=== PATIENT | male | born 1935 | race Caucasian/White ===

== ENCOUNTER 2022-09-23 21:33 | Inpatient (IN) | payer MEDICARE, OTHER ==
[~2022-09-23] VITALS: Ht 170.2 cm; Wt 68.0 kg
[2022-09-23] MEDS ORDERED: FAMOTIDINE. 20 MG/2 ML VIAL IV ONE (22:00)
[2022-09-23] MEDS ORDERED: ONDANSETRON 4 MG/2 ML VIAL IV ONE (22:00)
[2022-09-23 22:10] LABS: BASOPHILS % (AUTO) 0.5 % (0.0-2.0); EOSINOPHILS # (AUTO) 0.1 K/uL (0.0-0.7); EOSINOPHILS % (AUTO) 1.5 % (0.0-7.0); HEMATOCRIT 37.1 % (36.7-47.1); HEMOGLOBIN 12.5 g/dL (12.5-16.3); LYMPHOCYTES # (AUTO) 0.7 K/uL (0.8-4.8); LYMPHOCYTES % (AUTO) 8.9 % (20.5-51.5); MEAN CORPUSCULAR HEMOGLOBIN 29.5 uug (23.8-33.4); MEAN CORPUSCULAR HGB CONC 34 g/dL (32.5-36.3); MEAN CORPUSCULAR VOLUME 87.9 fL (73.0-96.2); MONOCYTES # (AUTO) 0.4 K/uL (0.1-1.30); MONOCYTES % (AUTO) 5.4 % (0.0-11.0); NEUTROPHILS # (AUTO) 6.2 K/uL (1.8-8.9); NEUTROPHILS % (AUTO) 83.7 % (38.5-71.5); PLATELET COUNT (AUTO) 198 K/uL (152-348); RED BLOOD CELL COUNT(AUTO) 4.23 MIL/uL (4.06-5.63); RED CELL DISTRIBUTION WIDTH 15.1 % (12.1-16.2); WHITE BLOOD COUNT (AUTO) 7.4 K/uL (3.6-10.2)
[2022-09-23 22:15] LABS: DIFFERENTIAL COMMENT 1
[2022-09-23 22:18] LABS: CALCIUM 9.1 mg/dL (8.5-10.1); CARBON DIOXIDE 28 mmol/L (21-32); CHLORIDE 102 mmol/L (98-107); CREATININE 1.9 mg/dL (0.6-1.3); GLUCOSE 120 mg/dL (74-106); POTASSIUM 3.9 mmol/L (3.5-5.1); SODIUM SERUM 138 mmol/L (136-145); UREA NITROGEN, BLOOD 40 mg/dL (7-18)
[2022-09-23] MEDS ORDERED: GABA-532 PO (22:28)
[2022-09-23] MEDS ORDERED: SODI10PO PO (22:28)
[2022-09-23] MEDS ORDERED: MEMA10TA PO (22:28)
[2022-09-23] MEDS ORDERED: CARV3.122 PO (22:28)
[2022-09-23] MEDS ORDERED: MULT-1045 PO (22:28)
[2022-09-23] MEDS ORDERED: CALC-1257 PO (22:28)
[2022-09-23] MEDS ORDERED: RIVA1PAT TD (22:28)
[2022-09-23] MEDS ORDERED: ASPI81TA31 PO (22:28)
[2022-09-23] MEDS ORDERED: OMEP20CA15 PO (22:28)
[2022-09-23] MEDS ORDERED: ESCI10TA PO (22:28)
[2022-09-23] MEDS ORDERED: SIMV-49 PO (22:28)
[2022-09-23 22:31] LABS: ALANINE AMINOTRANSFERASE 17 U/L (16-63); ALBUMIN 3.2 g/dL (3.4-5.0); ALKALINE PHOSPHATASE 56 U/L (50-136); ASPARTATE AMINOTRANSFERASE 12 U/L (15-37); BILIRUBIN,DIRECT 0.1 mg/dL (0.0-0.2); BILIRUBIN,TOTAL 0.4 mg/dL (0.2-1.0); NT-PRO BNP 712 pg/mL (0-125); TOTAL PROTEIN, SERUM 7.5 g/dL (6.4-8.2)
[2022-09-23] MEDS ORDERED: ONDANSETRON 4 MG/2 ML VIAL IV PRN (23:00)
[2022-09-23] MEDS ORDERED: MORPHINE SULFATE 2 MG/1 ML DISP.SYRIN IV PRN (23:00)
[2022-09-23] MEDS ORDERED: NITROGLYCERIN 0.4 MG/TAB BOTTLE SL PRN (23:00)
[2022-09-23] MEDS ORDERED: IV NS 1000 ML 1,000 ML IV PRN (23:00)
[2022-09-23] MEDS ORDERED: REMEDY ESSENTIAL ZINC PASTE 113 GM TP PRN (23:00)
[2022-09-23] MEDS ORDERED: ACETAMINOPHEN 325 MG TABLET PO PRN (23:00)
[2022-09-23] MEDS ORDERED: LORAZEPAM 0.5 MG TABLET PO ONE (23:00)
[2022-09-24 01:00] VITALS: BP 117/48; TEMP 97.9
[2022-09-24 04:30] VITALS: BP 118/48; TEMP 98
[2022-09-24 07:00] LABS: BASOPHILS % (AUTO) 0.5 % (0.0-2.0); EOSINOPHILS # (AUTO) 0.3 K/uL (0.0-0.7); EOSINOPHILS % (AUTO) 4.3 % (0.0-7.0); HEMOGLOBIN 11.4 g/dL (12.5-16.3); LYMPHOCYTES # (AUTO) 2.5 K/uL (0.8-4.8); MEAN CORPUSCULAR HEMOGLOBIN 29.5 uug (23.8-33.4); MEAN CORPUSCULAR HGB CONC 34 g/dL (32.5-36.3); MEAN CORPUSCULAR VOLUME 87.9 fL (73.0-96.2); MONOCYTES # (AUTO) 0.8 K/uL (0.1-1.30); MONOCYTES % (AUTO) 12.3 % (0.0-11.0); NEUTROPHILS % (AUTO) 44.9 % (38.5-71.5); PLATELET COUNT (AUTO) 171 K/uL (152-348); RED BLOOD CELL COUNT(AUTO) 3.87 MIL/uL (4.06-5.63); RED CELL DISTRIBUTION WIDTH 14.6 % (12.1-16.2); WHITE BLOOD COUNT (AUTO) 6.6 K/uL (3.6-10.2)
[2022-09-24] MEDS ORDERED: PANTOPRAZOLE SODIUM 40 MG TABLET.DR PO SCH (07:00)
[2022-09-24 07:19] LABS: CALCIUM 8.4 mg/dL (8.5-10.1); CARBON DIOXIDE 25 mmol/L (21-32); CHLORIDE 105 mmol/L (98-107); CHOLESTEROL 95 mg/dL (<200); CREATININE 1.7 mg/dL (0.6-1.3); DIFFERENTIAL COMMENT 1; GLUCOSE 98 mg/dL (74-106); HDL CHOLESTEROL 41 mg/dL (40-60); MAGNESIUM 2.1 mg/dL (1.8-2.4); POTASSIUM 4.2 mmol/L (3.5-5.1); SODIUM SERUM 138 mmol/L (136-145); TRIGLYCERIDES 99 MG/DL (30-150); UREA NITROGEN, BLOOD 34 mg/dL (7-18)
[2022-09-24 07:53] LABS: THYROID STIMULATING HORMONE 1.851 mIU/mL (0.358-3.740)
[2022-09-24 08:04] VITALS: BP 109/75; TEMP 97.7
[2022-09-24] MEDS ORDERED: CALCIUM CARB/VITAMIN D 600-400 MG TABLET PO SCH (09:00)
[2022-09-24] MEDS ORDERED: ASPIRIN 81 MG TAB.CHEW PO SCH (09:00)
[2022-09-24] MEDS ORDERED: RIVASTIGMINE 4.6 MG PATCH TD SCH (09:00)
[2022-09-24] MEDS ORDERED: MEMANTINE HCL 10 MG TABLET PO SCH (09:00)
[2022-09-24] MEDS ORDERED: HEPARIN SODIUM,PORCINE 5,000 UNITS/ML VIAL SQ SCH (09:00)
[2022-09-24] MEDS ORDERED: MULTIVITAMINS,THERAPEUTIC TABLET PO SCH (09:00)
[2022-09-24] MEDS ORDERED: RIVA4.5C10 PO (10:00)
[2022-09-24 11:48] VITALS: BP 123/55; TEMP 98; O2SAT 98
[2022-09-24] MEDS ORDERED: NITR0.4T48 SL (13:03)
[2022-09-24] MEDS ORDERED: SIMVASTATIN 40 MG TABLET PO SCH (21:00)
[2022-09-24] MEDS ORDERED: ESCITALOPRAM OXALATE 10 MG TABLET PO SCH (21:00)
== END 2022-09-24 13:55 | disposition home or self-care (01) | DRG 303 ==
LOC: ER 21:33 → TELE3 22:57
PROVIDERS: ADMIT Student in an Organized Health Care Education/Training Program; ATTEND Student in an Organized Health Care Education/Training Program
DX: I25.110 Atherosclerotic heart disease of native coronary artery with unstable angina pectoris (principal); N18.4 Chronic kidney disease, stage 4 (severe); Z95.1 Presence of aortocoronary bypass graft; E78.5 Hyperlipidemia, unspecified; I12.9 Hypertensive chronic kidney disease with stage 1 through stage 4 chronic kidney disease, or unspecified chronic kidney disease; F03.90 Unspecified dementia, unspecified severity, without behavioral disturbance, psychotic disturbance, mood disturbance, and anxiety; Z95.5 Presence of coronary angioplasty implant and graft; Z79.82 Long term (current) use of aspirin
CPT/HCPCS: 36415; 71045; 83735; 84100; 84443; 84484; 85025; 85730; 93005; A4663; G0378; J1644; J2405; J3490; J7040

== ENCOUNTER 2022-11-29 14:55 | Inpatient (IN) | payer MEDICARE, OTHER ==
[~2022-11-29] VITALS: Ht 167.6 cm; Wt 66.3 kg
[~2022-11-29 14:55] MED LIST: ASPI81TA31 PO; CALC-1257 PO; CARV3.122 PO; ESCI10TA PO; GABA-532 PO; MEMA10TA PO; MULT-1045 PO; NITR0.4T48 SL; OMEP20CA15 PO; RIVA4.5C10 PO; SIMV-49 PO; SODI10PO PO
[2022-11-29] MEDS ORDERED: IV NORMAL SALINE 1000 ML BAG IV ONE (15:15)
[2022-11-29] MEDS ORDERED: BREZTRI INH (15:24)
[2022-11-29] MEDS ORDERED: [UNRECOGNIZED DRUG - OTHER] INH (15:24)
[2022-11-29 15:26] LABS: BASOPHILS # (AUTO) 0.4 K/UL (0.0-0.2); BASOPHILS % (AUTO) 2.1 % (0.0-2.0); EOSINOPHILS % (AUTO) 0.2 % (0.0-7.0); HEMATOCRIT 40.1 % (36.7-47.1); LYMPHOCYTES # (AUTO) 2.1 K/uL (0.8-4.8); LYMPHOCYTES % (AUTO) 11.1 % (20.5-51.5); MEAN CORPUSCULAR HEMOGLOBIN 27.9 uug (23.8-33.4); MEAN CORPUSCULAR HGB CONC 33 g/dL (32.5-36.3); MEAN CORPUSCULAR VOLUME 85.7 fL (73.0-96.2); MONOCYTES # (AUTO) 1.6 K/uL (0.1-1.30); MONOCYTES % (AUTO) 8.4 % (0.0-11.0); NEUTROPHILS # (AUTO) 14.7 K/uL (1.8-8.9); NEUTROPHILS % (AUTO) 78.2 % (38.5-71.5); PLATELET COUNT (AUTO) 283 K/uL (152-348); RED BLOOD CELL COUNT(AUTO) 4.67 MIL/uL (4.06-5.63); RED CELL DISTRIBUTION WIDTH 15.3 % (12.1-16.2); WHITE BLOOD COUNT (AUTO) 18.8 K/uL (3.6-10.2)
[2022-11-29 15:30] LABS: DIFFERENTIAL COMMENT 1
[2022-11-29 15:38] LABS: CALCIUM 8.9 mg/dL (8.5-10.1); CARBON DIOXIDE 24 mmol/L (21-32); CHLORIDE 96 mmol/L (98-107); CREATININE 1.6 mg/dL (0.6-1.3); GLUCOSE 100 mg/dL (74-106); POTASSIUM 4.2 mmol/L (3.5-5.1); SODIUM SERUM 131 mmol/L (136-145); UREA NITROGEN, BLOOD 31 mg/dL (7-18)
[2022-11-29 15:46] LABS: ALANINE AMINOTRANSFERASE 39 U/L (16-63); ALBUMIN 2.4 g/dL (3.4-5.0); ALKALINE PHOSPHATASE 93 U/L (50-136); ASPARTATE AMINOTRANSFERASE 32 U/L (15-37); BILIRUBIN,DIRECT 0.7 mg/dL (0.0-0.2); BILIRUBIN,TOTAL 1.8 mg/dL (0.2-1.0); TOTAL PROTEIN, SERUM 7.6 g/dL (6.4-8.2)
[2022-11-29 17:06] LABS: *BILIRUBIN,URIN NEGATIVE (NEGATIVE); *BLOOD, URINE 2+ (NEGATIVE); *CLARITY,URINE CLEAR (CLEAR); *COLOR,URINE YELLOW (YELLOW); *KETONES,URINE 2+ (NEGATIVE); *PROTEIN,URINE 2+ (NEGATIVE); LEUKOCYTE ESTERASE ,URINE NEGATIVE (NEGATIVE); NITRITE, URINE NEGATIVE (NEGATIVE); UGLUCOSE NEGATIVE (NEGATIVE)
[2022-11-29 17:14] LABS: BACTERIA,URINE FEW /HPF (NONE SEEN); RBC,URINE 50-80 /HPF (0-3); SQUAMOUS EPITHELIAL CELL,UR FEW /HPF (NONE SEEN); WBC,URINE NONE SEEN /HPF (0-3)
[2022-11-29] MEDS ORDERED: PIPERACILLIN SODIUM/TAZOBACTAM 4.5 G in IV DEXTROSE 5% 50 ML IV SCH (18:30)
[2022-11-29] MEDS ORDERED: VANCOMYCIN IV 1,000 MG in IV DEXTROSE 5% 250 ML IV ONE (18:30)
[2022-11-29] MEDS ORDERED: VANCOMYCIN IV 200 ML ONE (18:39)
[2022-11-29] MEDS ORDERED: PIPERACILLIN/TAZO 4.5 GM VIAL IV ONE (18:39)
[2022-11-29] MEDS ORDERED: REMEDY ESSENTIAL ZINC PASTE 113 GM TP PRN (19:45)
[2022-11-29] MEDS ORDERED: ACETAMINOPHEN 325 MG TABLET PO PRN (19:45)
[2022-11-29] MEDS ORDERED: ONDANSETRON 4 MG/2 ML VIAL IV PRN (19:45)
[2022-11-29] MEDS ORDERED: FLEET ENEMA 133 ML BOTTLE RC ONE (19:45)
[2022-11-29] MEDS: AZITHROMYCIN IV 500 MG in IV DEXTROSE 5% 250 ML IV SCH ×2 (20:00→22:00)
[2022-11-29] MEDS ORDERED: ALBUTEROL SULFATE 2.5 MG/3 ML NEBU NEB PRN (20:00)
[2022-11-29] MEDS ORDERED: IPRATROPIUM BROMIDE 0.5 MG/2.5 ML NEBU NEB PRN (20:00)
[2022-11-29] MEDS: CEFEPIME HCL 1 G in IV DEXTROSE 5% 50 ML IV SCH ×2 (21:00→22:00)
[2022-11-29] MEDS: HEPARIN SODIUM,PORCINE 5,000 UNITS/ML VIAL SQ SCH (21:00)
[2022-11-29] MEDS ORDERED: SIMVASTATIN 40 MG TABLET PO SCH (21:00)
[2022-11-29 21:30] VITALS: BP 133/62; TEMP 98.9; O2SAT 94
[2022-11-29] MEDS: IV NS 1000 ML 1,000 ML IV PRN (22:00)
[2022-11-29] MEDS ORDERED: CEFEPIME HCL 1 G VIAL ONE (22:39)
[2022-11-29] MEDS ORDERED: AZITHROMYCIN 500 MG VIAL IV ONE (22:40)
[2022-11-30 00:14] VITALS: BP 140/63; TEMP 99.8; O2SAT 94
[2022-11-30] MEDS ORDERED: KETOROLAC TROMETHAMINE 15 MG INJ IVP PRN (01:45)
[2022-11-30] MEDS ORDERED: MORPHINE SULFATE 2 MG/1 ML DISP.SYRIN IV PRN (01:45)
[2022-11-30 04:48] VITALS: BP 114/51; TEMP 98.5; O2SAT 94
[2022-11-30] MEDS: PANTOPRAZOLE SODIUM 40 MG TABLET.DR PO SCH (06:30)
[2022-11-30] MEDS: CEFEPIME HCL 1 G in IV DEXTROSE 5% 50 ML IV SCH (07:03)
[2022-11-30 07:29] LABS: BASOPHILS % (AUTO) 0.2 % (0.0-2.0); HEMATOCRIT 35.5 % (36.7-47.1); HEMOGLOBIN 11.5 g/dL (12.5-16.3); LYMPHOCYTES % (AUTO) 5.2 % (20.5-51.5); MEAN CORPUSCULAR HEMOGLOBIN 28.1 uug (23.8-33.4); MEAN CORPUSCULAR HGB CONC 32 g/dL (32.5-36.3); MEAN CORPUSCULAR VOLUME 86.8 fL (73.0-96.2); MONOCYTES # (AUTO) 1.7 K/uL (0.1-1.30); NEUTROPHILS % (AUTO) 85.6 % (38.5-71.5); PLATELET COUNT (AUTO) 256 K/uL (152-348); RED BLOOD CELL COUNT(AUTO) 4.09 MIL/uL (4.06-5.63); RED CELL DISTRIBUTION WIDTH 15.1 % (12.1-16.2); WHITE BLOOD COUNT (AUTO) 18.8 K/uL (3.6-10.2)
[2022-11-30 07:38] LABS: DIFFERENTIAL COMMENT 1
[2022-11-30 07:46] LABS: CALCIUM 8.4 mg/dL (8.5-10.1); CARBON DIOXIDE 22 mmol/L (21-32); CHLORIDE 102 mmol/L (98-107); CHOLESTEROL 94 mg/dL (<200); CREATININE 1.6 mg/dL (0.6-1.3); GLUCOSE 134 mg/dL (74-106); HDL CHOLESTEROL 38 mg/dL (40-60); MAGNESIUM 2.4 mg/dL (1.8-2.4); PHOSPHOROUS 3.5 mg/dL (2.5-4.9); POTASSIUM 4.4 mmol/L (3.5-5.1); SODIUM SERUM 129 mmol/L (136-145); TRIGLYCERIDES 60 MG/DL (30-150); UREA NITROGEN, BLOOD 29 mg/dL (7-18)
[2022-11-30 07:54] LABS: THYROID STIMULATING HORMONE 3.341 mIU/mL (0.358-3.740)
[2022-11-30 08:00] VITALS: BP 109/46; TEMP 99.1; O2SAT 100
[2022-11-30] MEDS: MEMANTINE HCL 10 MG TABLET PO SCH (09:00)
[2022-11-30] MEDS ORDERED: MEMANTINE HCL 10 MG TABLET PO SCH (09:00)
[2022-11-30] MEDS: HEPARIN SODIUM,PORCINE 5,000 UNITS/ML VIAL SQ SCH ×2 (09:58→20:59)
[2022-11-30] MEDS: ASPIRIN 81 MG TAB.CHEW PO SCH (09:59)
[2022-11-30] MEDS: MULTIVITAMINS,THERAPEUTIC TABLET PO SCH (10:00)
[2022-11-30] MEDS: CALCIUM CARB/VITAMIN D 600-400 MG TABLET PO SCH (10:00)
[2022-11-30] MEDS: MIRALAX 17 GM POWD.PACK PO SCH (10:01)
[2022-11-30] MEDS: RIVASTIGMINE TARTRATE 1.5 MG CAPSULE PO SCH (10:02)
[2022-11-30] MEDS ORDERED: FLEET ENEMA 133 ML BOTTLE RC ONE (11:15)
[2022-11-30] MEDS: CEFEPIME HCL 2 G in IV DEXTROSE 5% 100 ML IV SCH (13:49)
[2022-11-30 15:41] VITALS: BP 112/54; TEMP 97.4; O2SAT 94
[2022-11-30 20:00] VITALS: BP 138/70; TEMP 98.2
[2022-11-30] MEDS: AZITHROMYCIN IV 500 MG in IV DEXTROSE 5% 250 ML IV SCH (20:04)
[2022-11-30] MEDS: SIMVASTATIN 40 MG TABLET PO SCH (21:00)
[2022-11-30] MEDS: ESCITALOPRAM OXALATE 10 MG TABLET PO SCH (21:00)
[2022-11-30 23:50] VITALS: BP 148/62; TEMP 98
[2022-12-01] MEDS: CEFEPIME HCL 2 G in IV DEXTROSE 5% 100 ML IV SCH ×2 (01:33→13:16)
[2022-12-01] MEDS: PANTOPRAZOLE SODIUM 40 MG TABLET.DR PO SCH (06:12)
[2022-12-01 07:19] LABS: BASOPHILS # (AUTO) 0.1 K/UL (0.0-0.2); BASOPHILS % (AUTO) 0.4 % (0.0-2.0); EOSINOPHILS # (AUTO) 0.1 K/uL (0.0-0.7); EOSINOPHILS % (AUTO) 0.9 % (0.0-7.0); HEMATOCRIT 31.3 % (36.7-47.1); HEMOGLOBIN 10.3 g/dL (12.5-16.3); LYMPHOCYTES # (AUTO) 0.8 K/uL (0.8-4.8); LYMPHOCYTES % (AUTO) 5.7 % (20.5-51.5); MEAN CORPUSCULAR HEMOGLOBIN 28.4 uug (23.8-33.4); MEAN CORPUSCULAR HGB CONC 33 g/dL (32.5-36.3); MEAN CORPUSCULAR VOLUME 86.2 fL (73.0-96.2); MONOCYTES # (AUTO) 0.9 K/uL (0.1-1.30); MONOCYTES % (AUTO) 6.8 % (0.0-11.0); NEUTROPHILS # (AUTO) 11.6 K/uL (1.8-8.9); NEUTROPHILS % (AUTO) 86.2 % (38.5-71.5); PLATELET COUNT (AUTO) 221 K/uL (152-348); RED BLOOD CELL COUNT(AUTO) 3.64 MIL/uL (4.06-5.63); RED CELL DISTRIBUTION WIDTH 15.1 % (12.1-16.2); WHITE BLOOD COUNT (AUTO) 13.5 K/uL (3.6-10.2)
[2022-12-01] MEDS: IV NS 1000 ML 1,000 ML IV PRN (07:19)
[2022-12-01 07:40] LABS: CALCIUM 7.7 mg/dL (8.5-10.1); CARBON DIOXIDE 20 mmol/L (21-32); CHLORIDE 101 mmol/L (98-107); CREATININE 1.4 mg/dL (0.6-1.3); GLUCOSE 121 mg/dL (74-106); LIPASE 66 U/L (73-393); PHOSPHOROUS 2.5 mg/dL (2.5-4.9); POTASSIUM 3.8 mmol/L (3.5-5.1); SODIUM SERUM 131 mmol/L (136-145); UREA NITROGEN, BLOOD 26 mg/dL (7-18)
[2022-12-01 08:06] LABS: DIFFERENTIAL COMMENT 1
[2022-12-01] MEDS: MIRALAX 17 GM POWD.PACK PO SCH (08:42)
[2022-12-01] MEDS: CALCIUM CARB/VITAMIN D 600-400 MG TABLET PO SCH (08:42)
[2022-12-01] MEDS: RIVASTIGMINE TARTRATE 1.5 MG CAPSULE PO SCH (08:42)
[2022-12-01] MEDS: ASPIRIN 81 MG TAB.CHEW PO SCH (08:42)
[2022-12-01] MEDS: MULTIVITAMINS,THERAPEUTIC TABLET PO SCH (08:43)
[2022-12-01] MEDS: MEMANTINE HCL 10 MG TABLET PO SCH (08:43)
[2022-12-01] MEDS: HEPARIN SODIUM,PORCINE 5,000 UNITS/ML VIAL SQ SCH ×2 (08:45→20:26)
[2022-12-01 11:32] VITALS: BP 113/43; TEMP 97.3; O2SAT 95
[2022-12-01 15:51] VITALS: BP 116/50; TEMP 97.6; O2SAT 95
[2022-12-01] MEDS: ESCITALOPRAM OXALATE 10 MG TABLET PO SCH (20:22)
[2022-12-01] MEDS: SIMVASTATIN 40 MG TABLET PO SCH (20:22)
[2022-12-01] MEDS: AZITHROMYCIN IV 500 MG in IV DEXTROSE 5% 250 ML IV SCH (20:33)
[2022-12-01 21:52] VITALS: BP 126/57; TEMP 99.1; O2SAT 99
[2022-12-02 01:18] VITALS: BP 126/62; TEMP 98; O2SAT 99
[2022-12-02] MEDS: CEFEPIME HCL 2 G in IV DEXTROSE 5% 100 ML IV SCH ×2 (02:38→14:07)
[2022-12-02 05:55] VITALS: BP 115/64; TEMP 98.6; O2SAT 100
[2022-12-02] MEDS: PANTOPRAZOLE SODIUM 40 MG TABLET.DR PO SCH (06:45)
[2022-12-02 07:14] LABS: BASOPHILS # (AUTO) 0.1 K/UL (0.0-0.2); BASOPHILS % (AUTO) 0.9 % (0.0-2.0); EOSINOPHILS # (AUTO) 0.4 K/uL (0.0-0.7); EOSINOPHILS % (AUTO) 3.5 % (0.0-7.0); HEMATOCRIT 33.2 % (36.7-47.1); LYMPHOCYTES # (AUTO) 1.1 K/uL (0.8-4.8); LYMPHOCYTES % (AUTO) 10.2 % (20.5-51.5); MEAN CORPUSCULAR HEMOGLOBIN 28.5 uug (23.8-33.4); MEAN CORPUSCULAR HGB CONC 33 g/dL (32.5-36.3); MEAN CORPUSCULAR VOLUME 86.2 fL (73.0-96.2); MONOCYTES # (AUTO) 0.8 K/uL (0.1-1.30); MONOCYTES % (AUTO) 7.5 % (0.0-11.0); NEUTROPHILS # (AUTO) 8.1 K/uL (1.8-8.9); NEUTROPHILS % (AUTO) 77.9 % (38.5-71.5); PLATELET COUNT (AUTO) 230 K/uL (152-348); RED BLOOD CELL COUNT(AUTO) 3.85 MIL/uL (4.06-5.63); RED CELL DISTRIBUTION WIDTH 15.2 % (12.1-16.2); WHITE BLOOD COUNT (AUTO) 10.3 K/uL (3.6-10.2)
[2022-12-02 07:24] LABS: DIFFERENTIAL COMMENT 1
[2022-12-02 07:27] LABS: CALCIUM 7.7 mg/dL (8.5-10.1); CARBON DIOXIDE 23 mmol/L (21-32); CHLORIDE 101 mmol/L (98-107); CREATININE 1.5 mg/dL (0.6-1.3); GLUCOSE 85 mg/dL (74-106); SODIUM SERUM 132 mmol/L (136-145); UREA NITROGEN, BLOOD 25 mg/dL (7-18)
[2022-12-02 08:04] LABS: MAGNESIUM 2.1 mg/dL (1.8-2.4); PHOSPHOROUS 2.1 mg/dL (2.5-4.9)
[2022-12-02 08:25] VITALS: BP 128/70; TEMP 97.9; O2SAT 94
[2022-12-02] MEDS: HEPARIN SODIUM,PORCINE 5,000 UNITS/ML VIAL SQ SCH ×2 (08:56→20:19)
[2022-12-02] MEDS: MIRALAX 17 GM POWD.PACK PO SCH (09:43)
[2022-12-02] MEDS: RIVASTIGMINE TARTRATE 1.5 MG CAPSULE PO SCH (09:43)
[2022-12-02] MEDS: MULTIVITAMINS,THERAPEUTIC TABLET PO SCH (09:44)
[2022-12-02] MEDS: CALCIUM CARB/VITAMIN D 600-400 MG TABLET PO SCH (09:44)
[2022-12-02] MEDS: ASPIRIN 81 MG TAB.CHEW PO SCH (09:44)
[2022-12-02] MEDS: MEMANTINE HCL 10 MG TABLET PO SCH (09:44)
[2022-12-02 11:33] VITALS: BP 117/64; TEMP 97.9; O2SAT 94
[2022-12-02] MEDS ORDERED: ALBUTEROL SULFATE 2.5 MG/ 0.5 ML NEBU NEB PRN (12:45)
[2022-12-02] MEDS ORDERED: IPRATROPIUM BROMIDE 0.5 MG/2.5 ML NEBU NEB PRN (12:45)
[2022-12-02] MEDS ORDERED: NEUTRA PHOS PACKET PO ONE (15:45)
[2022-12-02 16:00] VITALS: BP 105/49; TEMP 97.4; O2SAT 95
[2022-12-02] MEDS: AZITHROMYCIN IV 500 MG in IV DEXTROSE 5% 250 ML IV SCH (20:12)
[2022-12-02] MEDS: SIMVASTATIN 40 MG TABLET PO SCH (20:13)
[2022-12-02] MEDS: ESCITALOPRAM OXALATE 10 MG TABLET PO SCH (20:13)
[2022-12-02 20:20] VITALS: BP 127/65; TEMP 98.4; O2SAT 95; O2SAT 96
[2022-12-03] MEDS: CEFEPIME HCL 2 G in IV DEXTROSE 5% 100 ML IV SCH ×2 (01:30→13:53)
[2022-12-03 04:20] VITALS: BP 147/63; TEMP 97.4; O2SAT 95
[2022-12-03] MEDS: PANTOPRAZOLE SODIUM 40 MG TABLET.DR PO SCH (06:13)
[2022-12-03 06:50] LABS: BASOPHILS # (AUTO) 0.1 K/UL (0.0-0.2); BASOPHILS % (AUTO) 0.8 % (0.0-2.0); EOSINOPHILS # (AUTO) 0.4 K/uL (0.0-0.7); EOSINOPHILS % (AUTO) 4.6 % (0.0-7.0); HEMATOCRIT 35.3 % (36.7-47.1); HEMOGLOBIN 11.8 g/dL (12.5-16.3); LYMPHOCYTES # (AUTO) 0.9 K/uL (0.8-4.8); LYMPHOCYTES % (AUTO) 10.6 % (20.5-51.5); MEAN CORPUSCULAR HEMOGLOBIN 28.5 uug (23.8-33.4); MEAN CORPUSCULAR HGB CONC 33 g/dL (32.5-36.3); MEAN CORPUSCULAR VOLUME 85.3 fL (73.0-96.2); MONOCYTES # (AUTO) 0.5 K/uL (0.1-1.30); MONOCYTES % (AUTO) 5.9 % (0.0-11.0); NEUTROPHILS # (AUTO) 6.8 K/uL (1.8-8.9); NEUTROPHILS % (AUTO) 78.1 % (38.5-71.5); PLATELET COUNT (AUTO) 266 K/uL (152-348); RED BLOOD CELL COUNT(AUTO) 4.14 MIL/uL (4.06-5.63); RED CELL DISTRIBUTION WIDTH 15.2 % (12.1-16.2); WHITE BLOOD COUNT (AUTO) 8.7 K/uL (3.6-10.2)
[2022-12-03 07:07] LABS: DIFFERENTIAL COMMENT 1
[2022-12-03 07:08] LABS: CALCIUM 8.2 mg/dL (8.5-10.1); CARBON DIOXIDE 22 mmol/L (21-32); CHLORIDE 99 mmol/L (98-107); CREATININE 1.6 mg/dL (0.6-1.3); GLUCOSE 129 mg/dL (74-106); MAGNESIUM 2.1 mg/dL (1.8-2.4); PHOSPHOROUS 2.2 mg/dL (2.5-4.9); POTASSIUM 3.9 mmol/L (3.5-5.1); SODIUM SERUM 130 mmol/L (136-145); UREA NITROGEN, BLOOD 26 mg/dL (7-18)
[2022-12-03 08:15] VITALS: BP 128/70; TEMP 97.9; O2SAT 95
[2022-12-03] MEDS: MIRALAX 17 GM POWD.PACK PO SCH ×2 (09:00→09:54)
[2022-12-03] MEDS: HEPARIN SODIUM,PORCINE 5,000 UNITS/ML VIAL SQ SCH ×2 (09:55→20:04)
[2022-12-03] MEDS: MEMANTINE HCL 10 MG TABLET PO SCH (09:58)
[2022-12-03] MEDS: RIVASTIGMINE TARTRATE 1.5 MG CAPSULE PO SCH (09:58)
[2022-12-03] MEDS: ASPIRIN 81 MG TAB.CHEW PO SCH (09:58)
[2022-12-03] MEDS: MULTIVITAMINS,THERAPEUTIC TABLET PO SCH (09:58)
[2022-12-03] MEDS: CALCIUM CARB/VITAMIN D 600-400 MG TABLET PO SCH (09:58)
[2022-12-03 11:35] VITALS: BP 135/71; TEMP 98.2; O2SAT 95
[2022-12-03] MEDS ORDERED: NEUTRA PHOS PACKET PO ONE (15:30)
[2022-12-03 16:00] VITALS: BP 141/64; TEMP 97.4; O2SAT 96
[2022-12-03] MEDS: SIMVASTATIN 40 MG TABLET PO SCH (20:03)
[2022-12-03] MEDS: ESCITALOPRAM OXALATE 10 MG TABLET PO SCH (20:04)
[2022-12-03 20:55] LABS: *SODIUM RNDM,URINE 79 mmol/L (40-220)
[2022-12-03] MEDS ORDERED: AZITHROMYCIN 250 MG TABLET PO SCH (21:00)
[2022-12-03 22:12] VITALS: BP 118/77; TEMP 98; O2SAT 99
[2022-12-04] MEDS: CEFEPIME HCL 2 G in IV DEXTROSE 5% 100 ML IV SCH ×2 (01:39→13:38)
[2022-12-04 05:07] VITALS: BP 125/55; TEMP 98.2; O2SAT 99
[2022-12-04] MEDS: PANTOPRAZOLE SODIUM 40 MG TABLET.DR PO SCH (06:07)
[2022-12-04 07:34] LABS: BASOPHILS % (AUTO) 0.6 % (0.0-2.0); EOSINOPHILS # (AUTO) 0.5 K/uL (0.0-0.7); HEMATOCRIT 37.8 % (36.7-47.1); HEMOGLOBIN 12.3 g/dL (12.5-16.3); LYMPHOCYTES # (AUTO) 1.3 K/uL (0.8-4.8); LYMPHOCYTES % (AUTO) 16.2 % (20.5-51.5); MEAN CORPUSCULAR HEMOGLOBIN 28.7 uug (23.8-33.4); MEAN CORPUSCULAR HGB CONC 33 g/dL (32.5-36.3); MEAN CORPUSCULAR VOLUME 87.8 fL (73.0-96.2); MONOCYTES # (AUTO) 0.7 K/uL (0.1-1.30); MONOCYTES % (AUTO) 8.4 % (0.0-11.0); NEUTROPHILS # (AUTO) 5.5 K/uL (1.8-8.9); NEUTROPHILS % (AUTO) 68.8 % (38.5-71.5); PLATELET COUNT (AUTO) 290 K/uL (152-348); RED CELL DISTRIBUTION WIDTH 15.3 % (12.1-16.2)
[2022-12-04 07:42] LABS: DIFFERENTIAL COMMENT 1
[2022-12-04 07:50] LABS: CARBON DIOXIDE 21 mmol/L (21-32); CHLORIDE 101 mmol/L (98-107); CREATININE 1.5 mg/dL (0.6-1.3); GLUCOSE 105 mg/dL (74-106); MAGNESIUM 2.4 mg/dL (1.8-2.4); POTASSIUM 4.1 mmol/L (3.5-5.1); SODIUM SERUM 132 mmol/L (136-145); UREA NITROGEN, BLOOD 25 mg/dL (7-18)
[2022-12-04 08:00] VITALS: BP 125/70; TEMP 98.4; O2SAT 95
[2022-12-04] MEDS: MEMANTINE HCL 10 MG TABLET PO SCH (09:24)
[2022-12-04] MEDS: ASPIRIN 81 MG TAB.CHEW PO SCH (09:24)
[2022-12-04] MEDS: CALCIUM CARB/VITAMIN D 600-400 MG TABLET PO SCH (09:24)
[2022-12-04] MEDS: MULTIVITAMINS,THERAPEUTIC TABLET PO SCH (09:25)
[2022-12-04] MEDS: RIVASTIGMINE TARTRATE 1.5 MG CAPSULE PO SCH (09:25)
[2022-12-04] MEDS: HEPARIN SODIUM,PORCINE 5,000 UNITS/ML VIAL SQ SCH ×2 (09:27→20:50)
[2022-12-04] MEDS: MIRALAX 17 GM POWD.PACK PO SCH (09:27)
[2022-12-04] MEDS ORDERED: POLYVINYL ALCOHOL OPHT DROPS 15 ML BOTTLE EACHEYE PRN (11:30)
[2022-12-04 15:14] VITALS: BP 132/64; TEMP 98.2; O2SAT 92
[2022-12-04] MEDS: ESCITALOPRAM OXALATE 10 MG TABLET PO SCH (20:49)
[2022-12-04] MEDS: SIMVASTATIN 40 MG TABLET PO SCH (20:49)
[2022-12-05] MEDS ORDERED: ONDA4VIA52 IM (07:08)
[2022-12-05] MEDS ORDERED: ASPI81TA31 PO (07:08)
[2022-12-05] MEDS ORDERED: IPRA0.2S6 NEB (07:08)
[2022-12-05] MEDS ORDERED: ALBU2.5V38 NEB (07:08)
[2022-12-05] MEDS ORDERED: MORP2VIA IJ (07:08)
[2022-12-05] MEDS ORDERED: CEFE2FRO IV (07:08)
[2022-12-05] MEDS ORDERED: ALBU2.5V13 NEB (07:08)
[2022-12-05] MEDS ORDERED: POLY15DR27 EACHEYE (07:08)
[2022-12-05] MEDS ORDERED: PANT40TA49 PO (07:15)
[2022-12-05] MEDS ORDERED: HEPA500034 SQ (07:15)
[2022-12-05] MEDS ORDERED: POLY17PO4 PO (07:20)
[2022-12-05 07:48] VITALS: BP 100/40; TEMP 98.4; O2SAT 96
== END 2022-12-04 21:08 | DRG 871 ==
LOC: ER 14:57 → MEDSURG3 18:32 → UNDOADMIN 18:32 → TELE3 20:48 → MEDSURG3 12-02 11:00
PROVIDERS: ADMIT Nurse Practitioner Family; ATTEND Nurse Practitioner Family
PROC: 05HC33Z Insertion of Infusion Device into Left Basilic Vein, Percutaneous Approach (ICD-10-PCS; principal; 2022-11-30)
DX: A41.9 Sepsis, unspecified organism (principal); G93.41 Metabolic encephalopathy; J15.9 Unspecified bacterial pneumonia; E87.1 Hypo-osmolality and hyponatremia; J44.0 Chronic obstructive pulmonary disease with (acute) lower respiratory infection; R17 Unspecified jaundice; N18.4 Chronic kidney disease, stage 4 (severe); E44.0 Moderate protein-calorie malnutrition; N17.9 Acute kidney failure, unspecified; N39.0 Urinary tract infection, site not specified; E86.0 Dehydration; E86.1 Hypovolemia; Z95.5 Presence of coronary angioplasty implant and graft; Z95.1 Presence of aortocoronary bypass graft; N40.0 Benign prostatic hyperplasia without lower urinary tract symptoms; Z90.49 Acquired absence of other specified parts of digestive tract; Z90.79 Acquired absence of other genital organ(s); Z85.46 Personal history of malignant neoplasm of prostate; Z79.899 Other long term (current) drug therapy; I25.10 Atherosclerotic heart disease of native coronary artery without angina pectoris; I12.9 Hypertensive chronic kidney disease with stage 1 through stage 4 chronic kidney disease, or unspecified chronic kidney disease; N27.0 Small kidney, unilateral; K44.9 Diaphragmatic hernia without obstruction or gangrene; Z68.23 Body mass index [BMI] 23.0-23.9, adult; E88.09 Other disorders of plasma-protein metabolism, not elsewhere classified; K59.00 Constipation, unspecified; E78.5 Hyperlipidemia, unspecified; I25.2 Old myocardial infarction; G30.9 Alzheimer's disease, unspecified; F02.80 Dementia in other diseases classified elsewhere, unspecified severity, without behavioral disturbance, psychotic disturbance, mood disturbance, and anxiety
CPT/HCPCS: 36415; 70450; 71045; 76770; 83605; 83690; 83735; 84100; 84300; 84443; 84484; 85025; 87040; 93005; G0378; J0456; J0692; J1644; J2270; J2405; J2543; J3370; J7040; J7050; Q0144

== ENCOUNTER 2022-12-04 21:41 | Inpatient (IN) | payer MEDICARE, OTHER ==
[~2022-12-04] VITALS: Ht 167.6 cm; Wt 65.3 kg
[~2022-12-04 21:41] MED LIST changes: +[UNRECOGNIZED DRUG - OTHER] INH
[2022-12-04 22:00] VITALS: BP 124/64; TEMP 97.9; O2SAT 96
[2022-12-05 04:00] VITALS: BP 130/65; TEMP 97.6; O2SAT 96
[2022-12-05] MEDS ORDERED: MORP2VIA IJ (07:08)
[2022-12-05] MEDS ORDERED: POLY15DR27 EACHEYE (07:08)
[2022-12-05] MEDS ORDERED: IPRA0.2S6 NEB (07:08)
[2022-12-05] MEDS ORDERED: ONDA4VIA52 IM (07:08)
[2022-12-05] MEDS ORDERED: ALBU2.5V38 NEB (07:08)
[2022-12-05] MEDS ORDERED: CEFE2FRO IV (07:08)
[2022-12-05] MEDS ORDERED: ALBU2.5V13 NEB (07:08)
[2022-12-05] MEDS ORDERED: ASPI81TA31 PO (07:08)
[2022-12-05] MEDS ORDERED: PANT40TA49 PO (07:15)
[2022-12-05] MEDS ORDERED: HEPA500034 SQ (07:15)
[2022-12-05] MEDS ORDERED: POLY17PO4 PO (07:20)
[2022-12-05 07:52] VITALS: BP 130/56; TEMP 98.4; O2SAT 94
[2022-12-05] MEDS: REMEDY ESSENTIAL ZINC PASTE 113 GM TOP PRN (09:37)
[2022-12-05 15:07] VITALS: BP 109/60; TEMP 97.6; O2SAT 94
[2022-12-05] MEDS ORDERED: IPRATROPIUM BROMIDE 0.5 MG/2.5 ML NEBU NEB PRN (16:00)
[2022-12-05] MEDS ORDERED: NITROGLYCERIN 0.4 MG/TAB BOTTLE SL PRN (16:00)
[2022-12-05] MEDS ORDERED: ONDANSETRON 4 MG/2 ML VIAL IM PRN (16:00)
[2022-12-05] MEDS ORDERED: ALBUTEROL SULFATE 2.5 MG/ 0.5 ML NEBU NEB PRN (16:00)
[2022-12-05] MEDS ORDERED: POLYVINYL ALCOHOL OPHT DROPS 15 ML BOTTLE EACHEYE PRN (16:00)
[2022-12-05 20:00] VITALS: BP 138/71; TEMP 97.8; O2SAT 96
[2022-12-05] MEDS: SIMVASTATIN 40 MG TABLET PO SCH (21:11)
[2022-12-05] MEDS: CARVEDILOL 3.125 MG TABLET PO SCH (21:12)
[2022-12-05] MEDS: ESCITALOPRAM OXALATE 10 MG TABLET PO SCH (21:12)
[2022-12-06 05:00] VITALS: BP 128/65; TEMP 97.9; O2SAT 97
[2022-12-06] MEDS: PANTOPRAZOLE SODIUM 40 MG TABLET.DR PO SCH (06:54)
[2022-12-06 08:00] VITALS: BP 113/53; TEMP 97.9; O2SAT 93
[2022-12-06] MEDS ORDERED: RIVASTIGMINE TARTRATE 4.5 MG PO SCH (09:00)
[2022-12-06] MEDS ORDERED: SODIUM ZIRCONIUM CYCLOSILICATE 10 GM PO SCH (09:00)
[2022-12-06] MEDS ORDERED: Medication Not On Formulary EA (Multivitamin (Multi-Vitamin Daily) 1 EACH) PO SCH (09:00)
[2022-12-06] MEDS ORDERED: Medication Not On Formulary EA (Omeprazole 20 MG) PO SCH (09:00)
[2022-12-06] MEDS: ASPIRIN 81 MG TAB.CHEW PO SCH (09:19)
[2022-12-06] MEDS: CALCIUM CARB/VITAMIN D 600-400 MG TABLET PO SCH (09:19)
[2022-12-06] MEDS: MIRALAX 17 GM POWD.PACK PO SCH (09:19)
[2022-12-06] MEDS: MEMANTINE HCL 10 MG TABLET PO SCH (09:20)
[2022-12-06] MEDS: MULTIVITAMINS,THERAPEUTIC TABLET PO SCH (09:20)
[2022-12-06] MEDS: RIVASTIGMINE TARTRATE 1.5 MG CAPSULE PO SCH (09:27)
[2022-12-06] MEDS ORDERED: BREZTRI INH (13:26)
[2022-12-06 16:00] VITALS: BP 122/73; TEMP 97.8; O2SAT 94
[2022-12-06 17:00] VITALS: BP 122/73; TEMP 97.8; O2SAT 94
[2022-12-06] MEDS ORDERED: PATIENT MAY USE OWN MED- MD OK INH SCH (17:00)
[2022-12-06 20:26] VITALS: BP 113/69; TEMP 97.6; O2SAT 98
[2022-12-06] MEDS: HEPARIN SODIUM,PORCINE 5,000 UNITS/ML VIAL SQ SCH (21:00)
[2022-12-06] MEDS: SIMVASTATIN 40 MG TABLET PO SCH (21:00)
[2022-12-06] MEDS: CARVEDILOL 3.125 MG TABLET PO SCH (21:00)
[2022-12-06] MEDS: ESCITALOPRAM OXALATE 10 MG TABLET PO SCH (21:00)
[2022-12-07 04:13] VITALS: BP 123/66; TEMP 97.5; O2SAT 96
[2022-12-07] MEDS: PANTOPRAZOLE SODIUM 40 MG TABLET.DR PO SCH (07:00)
[2022-12-07 07:07] LABS: BASOPHILS # (AUTO) 0.1 K/UL (0.0-0.2); BASOPHILS % (AUTO) 0.9 % (0.0-2.0); EOSINOPHILS # (AUTO) 0.4 K/uL (0.0-0.7); EOSINOPHILS % (AUTO) 5.6 % (0.0-7.0); HEMATOCRIT 37.5 % (36.7-47.1); HEMOGLOBIN 12.4 g/dL (12.5-16.3); LYMPHOCYTES # (AUTO) 1.8 K/uL (0.8-4.8); LYMPHOCYTES % (AUTO) 26.1 % (20.5-51.5); MEAN CORPUSCULAR HEMOGLOBIN 28.2 uug (23.8-33.4); MEAN CORPUSCULAR HGB CONC 33 g/dL (32.5-36.3); MEAN CORPUSCULAR VOLUME 85.4 fL (73.0-96.2); MONOCYTES # (AUTO) 0.7 K/uL (0.1-1.30); MONOCYTES % (AUTO) 10.1 % (0.0-11.0); NEUTROPHILS # (AUTO) 4.1 K/uL (1.8-8.9); NEUTROPHILS % (AUTO) 57.3 % (38.5-71.5); PLATELET COUNT (AUTO) 374 K/uL (152-348); RED BLOOD CELL COUNT(AUTO) 4.39 MIL/uL (4.06-5.63); RED CELL DISTRIBUTION WIDTH 15.5 % (12.1-16.2); WHITE BLOOD COUNT (AUTO) 7.1 K/uL (3.6-10.2)
[2022-12-07 07:32] LABS: DIFFERENTIAL COMMENT 1
[2022-12-07 07:35] LABS: CALCIUM 8.9 mg/dL (8.5-10.1); CARBON DIOXIDE 25 mmol/L (21-32); CREATININE 1.5 mg/dL (0.6-1.3); GLUCOSE 102 mg/dL (74-106); MAGNESIUM 2.3 mg/dL (1.8-2.4); PHOSPHOROUS 3.4 mg/dL (2.5-4.9); UREA NITROGEN, BLOOD 33 mg/dL (7-18)
[2022-12-07 07:51] LABS: CHLORIDE 99 mmol/L (98-107); POTASSIUM 4.7 mmol/L (3.5-5.1); SODIUM SERUM 132 mmol/L (136-145)
[2022-12-07 08:19] VITALS: BP 152/66; TEMP 97.3; O2SAT 94
[2022-12-07] MEDS: MULTIVITAMINS,THERAPEUTIC TABLET PO SCH (08:20)
[2022-12-07] MEDS: MEMANTINE HCL 10 MG TABLET PO SCH (08:20)
[2022-12-07] MEDS: CALCIUM CARB/VITAMIN D 600-400 MG TABLET PO SCH (08:20)
[2022-12-07] MEDS: ASPIRIN 81 MG TAB.CHEW PO SCH (08:20)
[2022-12-07] MEDS: RIVASTIGMINE TARTRATE 1.5 MG CAPSULE PO SCH (08:20)
[2022-12-07] MEDS: HEPARIN SODIUM,PORCINE 5,000 UNITS/ML VIAL SQ SCH ×2 (08:21→20:54)
[2022-12-07] MEDS: MIRALAX 17 GM POWD.PACK PO SCH (08:26)
[2022-12-07 15:56] VITALS: BP 131/62; TEMP 98.3; O2SAT 96
[2022-12-07 20:45] VITALS: BP 125/65; TEMP 97.9; O2SAT 95
[2022-12-07] MEDS: ESCITALOPRAM OXALATE 10 MG TABLET PO SCH (20:45)
[2022-12-07] MEDS: CARVEDILOL 3.125 MG TABLET PO SCH (20:45)
[2022-12-07] MEDS: SIMVASTATIN 40 MG TABLET PO SCH (20:45)
[2022-12-08 04:30] VITALS: BP 134/65; TEMP 98.1; O2SAT 95
[2022-12-08] MEDS: PANTOPRAZOLE SODIUM 40 MG TABLET.DR PO SCH (06:58)
[2022-12-08 07:57] VITALS: BP 101/61; TEMP 98.2; O2SAT 96
[2022-12-08] MEDS: MULTIVITAMINS,THERAPEUTIC TABLET PO SCH (08:57)
[2022-12-08] MEDS: ASPIRIN 81 MG TAB.CHEW PO SCH (08:57)
[2022-12-08] MEDS: CALCIUM CARB/VITAMIN D 600-400 MG TABLET PO SCH (08:57)
[2022-12-08] MEDS: MIRALAX 17 GM POWD.PACK PO SCH (08:58)
[2022-12-08] MEDS: MEMANTINE HCL 10 MG TABLET PO SCH (08:58)
[2022-12-08] MEDS: RIVASTIGMINE TARTRATE 1.5 MG CAPSULE PO SCH (08:58)
[2022-12-08] MEDS ORDERED: GABAPENTIN 100 MG CAPSULE PO PRN (09:00)
[2022-12-08] MEDS: HEPARIN SODIUM,PORCINE 5,000 UNITS/ML VIAL SQ SCH ×2 (09:09→21:07)
[2022-12-08 15:30] VITALS: BP 117/64; TEMP 97.7; O2SAT 97
[2022-12-08 19:01] VITALS: BP 116/66; TEMP 98; O2SAT 98
[2022-12-08 19:57] VITALS: BP 116/69; TEMP 97.2; O2SAT 95
[2022-12-08] MEDS: SIMVASTATIN 40 MG TABLET PO SCH (21:03)
[2022-12-08] MEDS: ESCITALOPRAM OXALATE 10 MG TABLET PO SCH (21:04)
[2022-12-08] MEDS: CARVEDILOL 3.125 MG TABLET PO SCH (21:12)
[2022-12-09 00:44] VITALS: BP 121/66; TEMP 97; O2SAT 95
[2022-12-09 04:00] VITALS: BP 122/59; TEMP 97.7; O2SAT 93
[2022-12-09] MEDS: PANTOPRAZOLE SODIUM 40 MG TABLET.DR PO SCH (06:37)
[2022-12-09 07:48] VITALS: BP 105/61; TEMP 97.5; O2SAT 95
[2022-12-09] MEDS: CALCIUM CARB/VITAMIN D 600-400 MG TABLET PO SCH (08:48)
[2022-12-09] MEDS: RIVASTIGMINE TARTRATE 1.5 MG CAPSULE PO SCH (08:48)
[2022-12-09] MEDS: ASPIRIN 81 MG TAB.CHEW PO SCH (08:48)
[2022-12-09] MEDS: MEMANTINE HCL 10 MG TABLET PO SCH (08:48)
[2022-12-09] MEDS: MULTIVITAMINS,THERAPEUTIC TABLET PO SCH (08:48)
[2022-12-09] MEDS: HEPARIN SODIUM,PORCINE 5,000 UNITS/ML VIAL SQ SCH ×2 (08:49→20:42)
[2022-12-09] MEDS: MIRALAX 17 GM POWD.PACK PO SCH (08:51)
[2022-12-09 16:30] VITALS: BP 133/46; TEMP 97.6; O2SAT 97
[2022-12-09 20:00] VITALS: BP 116/57; TEMP 98.2; O2SAT 99
[2022-12-09] MEDS: ESCITALOPRAM OXALATE 10 MG TABLET PO SCH (20:41)
[2022-12-09] MEDS: CARVEDILOL 3.125 MG TABLET PO SCH (20:41)
[2022-12-10] MEDS: PANTOPRAZOLE SODIUM 40 MG TABLET.DR PO SCH (06:37)
[2022-12-10 06:56] VITALS: BP 121/65; TEMP 97.6; O2SAT 97
[2022-12-10 07:34] LABS: BASOPHILS % (AUTO) 0.3 % (0.0-2.0); EOSINOPHILS # (AUTO) 0.3 K/uL (0.0-0.7); EOSINOPHILS % (AUTO) 3.6 % (0.0-7.0); HEMATOCRIT 38.9 % (36.7-47.1); HEMOGLOBIN 12.6 g/dL (12.5-16.3); LYMPHOCYTES % (AUTO) 28.8 % (20.5-51.5); MEAN CORPUSCULAR HEMOGLOBIN 27.8 uug (23.8-33.4); MEAN CORPUSCULAR HGB CONC 32 g/dL (32.5-36.3); MONOCYTES # (AUTO) 0.8 K/uL (0.1-1.30); MONOCYTES % (AUTO) 11.6 % (0.0-11.0); NEUTROPHILS # (AUTO) 3.8 K/uL (1.8-8.9); NEUTROPHILS % (AUTO) 55.7 % (38.5-71.5); PLATELET COUNT (AUTO) 381 K/uL (152-348); RED BLOOD CELL COUNT(AUTO) 4.52 MIL/uL (4.06-5.63); RED CELL DISTRIBUTION WIDTH 15.6 % (12.1-16.2); WHITE BLOOD COUNT (AUTO) 6.9 K/uL (3.6-10.2)
[2022-12-10 07:48] LABS: DIFFERENTIAL COMMENT 1
[2022-12-10 08:00] VITALS: BP 126/65; TEMP 97.8; O2SAT 94
[2022-12-10 08:02] LABS: IRON, SERUM 50 ug/dL (50-175)
[2022-12-10 08:19] LABS: ALANINE AMINOTRANSFERASE 35 U/L (16-63); ALBUMIN 2.4 g/dL (3.4-5.0); ALKALINE PHOSPHATASE 77 U/L (50-136); ASPARTATE AMINOTRANSFERASE 32 U/L (15-37); BILIRUBIN,TOTAL 0.3 mg/dL (0.2-1.0); CALCIUM 9.1 mg/dL (8.5-10.1); CARBON DIOXIDE 27 mmol/L (21-32); CHLORIDE 100 mmol/L (98-107); CREATININE 1.7 mg/dL (0.6-1.3); GLUCOSE 112 mg/dL (74-106); MAGNESIUM 2.5 mg/dL (1.8-2.4); PHOSPHOROUS 3.1 mg/dL (2.5-4.9); SODIUM SERUM 133 mmol/L (136-145); UREA NITROGEN, BLOOD 45 mg/dL (7-18)
[2022-12-10] MEDS ORDERED: GABAPENTIN 100 MG CAPSULE PO PRN (09:19)
[2022-12-10] MEDS: MEMANTINE HCL 10 MG TABLET PO SCH (09:52)
[2022-12-10] MEDS: MIRALAX 17 GM POWD.PACK PO SCH (09:52)
[2022-12-10] MEDS: RIVASTIGMINE TARTRATE 1.5 MG CAPSULE PO SCH (09:52)
[2022-12-10] MEDS: ASPIRIN 81 MG TAB.CHEW PO SCH (09:52)
[2022-12-10] MEDS: MULTIVITAMINS,THERAPEUTIC TABLET PO SCH (09:52)
[2022-12-10] MEDS: CALCIUM CARB/VITAMIN D 600-400 MG TABLET PO SCH (09:52)
[2022-12-10] MEDS: PROTEIN SUPPLEMENT (PROSTAT) 30 ML LIQUID PO SCH (09:54)
[2022-12-10 16:00] VITALS: BP 109/74; TEMP 97.6; O2SAT 94
[2022-12-10 20:00] VITALS: BP 101/67; TEMP 97.6; O2SAT 95
[2022-12-10] MEDS: CARVEDILOL 3.125 MG TABLET PO SCH (20:35)
[2022-12-10] MEDS: ESCITALOPRAM OXALATE 10 MG TABLET PO SCH (20:35)
[2022-12-11] MEDS: PANTOPRAZOLE SODIUM 40 MG TABLET.DR PO SCH (06:16)
[2022-12-11 08:00] VITALS: BP 111/49; TEMP 97.9; O2SAT 98
[2022-12-11] MEDS: MIRALAX 17 GM POWD.PACK PO SCH (08:36)
[2022-12-11] MEDS: ASPIRIN 81 MG TAB.CHEW PO SCH (08:37)
[2022-12-11] MEDS: CALCIUM CARB/VITAMIN D 600-400 MG TABLET PO SCH (08:37)
[2022-12-11] MEDS: RIVASTIGMINE TARTRATE 1.5 MG CAPSULE PO SCH (08:37)
[2022-12-11] MEDS: MULTIVITAMINS,THERAPEUTIC TABLET PO SCH (08:37)
[2022-12-11] MEDS: MEMANTINE HCL 10 MG TABLET PO SCH (08:38)
[2022-12-11] MEDS: PROTEIN SUPPLEMENT (PROSTAT) 30 ML LIQUID PO SCH (08:38)
[2022-12-11] MEDS: REMEDY ESSENTIAL ZINC PASTE 113 GM TOP PRN (08:38)
== END 2022-12-11 14:20 | DRG 871 ==
PROVIDERS: ADMIT Physical Medicine & Rehabilitation Pain Medicine; ATTEND Physical Medicine & Rehabilitation Pain Medicine
DX: A41.9 Sepsis, unspecified organism (principal); E43 Unspecified severe protein-calorie malnutrition; G93.41 Metabolic encephalopathy; J18.9 Pneumonia, unspecified organism; N17.0 Acute kidney failure with tubular necrosis; N17.9 Acute kidney failure, unspecified; N18.4 Chronic kidney disease, stage 4 (severe); D68.59 Other primary thrombophilia; E87.1 Hypo-osmolality and hyponatremia; R17 Unspecified jaundice; N39.0 Urinary tract infection, site not specified; R53.1 Weakness; E78.5 Hyperlipidemia, unspecified; F02.80 Dementia in other diseases classified elsewhere, unspecified severity, without behavioral disturbance, psychotic disturbance, mood disturbance, and anxiety; G30.9 Alzheimer's disease, unspecified; I12.9 Hypertensive chronic kidney disease with stage 1 through stage 4 chronic kidney disease, or unspecified chronic kidney disease; I25.10 Atherosclerotic heart disease of native coronary artery without angina pectoris; Z85.46 Personal history of malignant neoplasm of prostate; Z95.1 Presence of aortocoronary bypass graft; C61 Malignant neoplasm of prostate; D64.9 Anemia, unspecified; E11.22 Type 2 diabetes mellitus with diabetic chronic kidney disease; E88.09 Other disorders of plasma-protein metabolism, not elsewhere classified; K44.9 Diaphragmatic hernia without obstruction or gangrene; K56.41 Fecal impaction; N20.0 Calculus of kidney
CPT/HCPCS: 36415; 71045; 83550; 83735; 84100; 84153; 85025; 97535-GO-CO; J1644